=== PATIENT | male | born 1960 | race Caucasian/White ===

== ENCOUNTER → 2018-03-10 17:47 | Outpatient (CLI) | payer BC, SELFPAY ==
[2018-03-10 19:29] LABS: M R Staph aureus DNA By PCR Negative (Negative); Probe Check PASS; Specimen Processing Control PASS; Staph aureus DNA By PCR NEGATIVE (Negative)
== END ==
PROVIDERS: Referring Provider Podiatrist; Visit Provider Podiatrist
DX: L60.0 Ingrowing nail (principal)
CPT/HCPCS: 87070; 87077; 87186; 87205; 87640

== ENCOUNTER 2023-06-02 07:35 | Day surgery (SDC) | payer OTHER, SELFPAY ==
--- OUTSIDE RECORDS SUMMARY | 2023-06-02 07:53 | XMS RPT_ITS | CCD ---
Author Name Unknown Address [address] [place] [address] Organization [facility] Care Team Providers Care Safety Trainer Name Role Phone Mp Key DO Primary Care Provider MP KEY Attending Unavailable MP KEY Primary Care Unavailable Medications Current Medications Medication Drug Class(es) Dates Sig (Normalized) Sig (Original) atorvastatin 10 mg oral tablet (6 sources) HMG-CoA Reductase Inhibitor Start: 03-18-2023 End: 07-24-2023 take 1 tablet by mouth once daily atorvastatin (Lipitor) 10 MG tablet Take 1 tablet (10 mg) by mouth daily for 90 doses. 90 tablet 3 04/25/2023 07/24/2023 Active losartan potassium 100 mg oral tablet (6 sources) Angiotensin 2 Receptor Chasity Start: 03-18-2023 End: 07-24-2023 take 1 tablet by mouth once daily losartan (Cozaar) 100 MG tablet Take 1 tablet (100 mg) by mouth daily for 90 doses. 90 tablet 3 04/25/2023 07/24/2023 Active Problems Active Problems Problem Classification Problem Date Documented Date Episodic/Chronic Disorders of lipid metabolism (8 sources) Mixed hypercholesterolemia and hypertriglyceridemia; Translations: [Mixed hyperlipidemia] Onset: 6 04-25-2023 Chronic Essential hypertension (8 sources) Essential hypertension; Translations: [Essential (primary) hypertension] Onset: 6 04-25-2023 Chronic Other screening for suspected conditions (not mental disorders or infectious disease) (7 sources) Patient encounter status; Translations: [Encounter for screening for malignant neoplasm of colon] Onset: 3 04-25-2023 Episodic Residual codes; unclassified (5 sources) Family history of prostate cancer; Translations: [Family history of malignant neoplasm of prostate] Onset: 04-25-2023 Episodic Past or Other Problems Problem Classification Problem Date Documented Da te Episodic/Chronic Other connective tissue disease (5 sources) Plantar fasciitis of left foot; Translations: [Plantar fascial fibromatosis] Onset: 01-26-2018 02-26-2022 Episodic Results Test Name Value Interpretation Reference Range Facil ity Vital Signs Date Time Vital Sign Value Performing Clinician Faci lity 04-25-2023 17:19-0500 Diastolic blood pressure 76 mm[Hg] Mp Key DO Work Phone: [employer] 04-25-2023 17:19-0500 Heart rate 76 /min Mp Key DO Work Phone: [employer] 04-25-2023 17:19-0500 Systolic blood pressure 126 mm[Hg] Mp Key DO Work Phone: [employer] 04-25-2023 16:14-0500 Body height 180.3 cm Mp Key DO Work Phone: [employer] 04-25-2023 16:14-0500 Body mass index (BMI) [Ratio] 30.27 kg/m2 Mp Key DO Work Phone: [employer] 04-25-2023 16:14-0500 Body temperature 97.81 [degF] Mp Key DO Work Phone: [employer] 04-25-2023 16:14-0500 Body weight 98.43 kg Mp Key DO Work Phone: [employer] 04-25-2023 16:14-0500 SaO2% (BldA) [Mass fraction] 96 % Mp Key DO Work Phone: [facility] [employer] Encounters Encounter Date Encounter Type Care Provider Facility Start: 05-02-2023 Telephone encounter Historical Provider Work Phone: [facility] [employer] [facility] Procedures Date Procedure Procedure Detail Performing Clinician Start: 04-26-2023 Lipid 1996 panel - S sheeba or Plasma Mp Key DO Work Phone: Start: 01-30-2021 Lipid 1996 panel - S sheeba or Plasma Mp Key DO Work Phone: Plan of Treatment Date Care Activity Detail Author Start: 04-26-2028 Lipid panel Lipid Panel [facility] Start: 01-30-2026 Lipid panel Lipid Panel [facility] Start: 02-24-2024 DTaP/Tdap/Td Vaccine s (3 - Td or Tdap) DTaP/Tdap/Td Vaccines (3 - Td or Tdap) [facility] Start: 04-25-2023 End: 04-25-2024 CBC W Auto Differential panel - Blood CBC auto differential Lab Routine Essential hypertension Annual physical exam Expected: 04/25/2023 (Approximate), Expires: 04/25/2024 [facility] Work Phone: Payers Date Payer Category Payer Private Health Insurance 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 Answered all questions regarding locations and physicians. Patients would like to see if another office that she is familiar with can schedule patient first and then will call us if she can't get him scheduled. [facility] 05-03-2023 Miscellaneous Notes Patients called office with questions about scheduling for patient. Answered all questions regarding locations and physicians. Patients would like to see if another office that she is familiar with can schedule patient first and then will call us if she can't get him scheduled. Called patient to schedule screening colonoscopy. Spoke with patient who stated now was not a good time. Patient stated will call me back to schedule. Called patient to schedule screening colonoscopy. Spoke with patient who stated now was not a good time to schedule and he requested to be called tomorrow afternoon. I will attempt to schedule patient at that time. documented in this encounter [facility] 05-03-2023 Telephone encounter Note Called patient to schedule screening colonoscopy. Spoke with patient who stated now was not a good time. Patient stated will call me back to schedule. [facility] 05-02-2023 Telephone encounter Note Called patient to schedule screening colonoscopy. Spoke with patient who stated now was not a good time to schedule and he requested to be called tomorrow afternoon. I will attempt to schedule patient at that time. [facility] 05-02-2023 Miscellaneous Notes Called patient to schedule screening colonoscopy. Spoke with patient who stated now was not a good time to schedule and he requested to be called tomorrow afternoon. I will attempt to schedule patient at that time. documented in this encounter [facility] 04-27-2023 Note Referral pended for dx and doctor's signature [facility] 04-27-2023 Telephone encounter Note Referral pended for dx and doctor's signature [facility] 04-27-2023 Miscellaneous Notes Referral pended for dx and doctor's signature documented in this encounter [facility] 04-25-2023 History of Present illness Narrative Images from the original note were not included. [facility] [address] [place] [address] [address] [facility] [id number] Visit type: Established Patient Reason for Visit: Annual Exam (Pt offered flu shot and declined ) Assessment / Plan: Freddie was seen today for annual exam. Diagnoses and all orders for this visit: Annual physical exam (Primary) - CBC auto differential; Future - Comprehensive metabolic panel; Future - Lipid panel; Future - TSH; Future - PSA Total (Screening); Future - CBC auto differential - Comprehensive metabolic panel - Lipid panel - TSH - PSA Total (Screening) Hypercholesterolemia with hypertriglyceridemia Comments: Stable, continue Lipitor and low-fat meals Orders: - Lipid panel; Future - TSH; Future - Lipid panel - TSH Essential hypertension Comments: Stable, continue losartan Orders: - CBC auto differential; Future - Comprehensive metabolic panel; Future - CBC auto differential - Comprehensive metabolic panel Colon cancer screening Comments: GI referral for colonoscopy versus Cologuard. Patient will get back to us Prostate cancer screening - PSA Total (Screening); Future - PSA Total (Screening) Other orders - atorvastatin (Lipitor) 10 MG tablet; Take 1 tablet (10 mg) by mouth daily for 90 doses. - losartan (Cozaar) 100 MG tablet; Take 1 tablet (100 mg) by mouth daily for 90 doses. Subjective: Patient ID: Freddie Becker is a 62 y.o. male. [facility] annual physical for hypertensive patient with hyperlipidemia treatment. Past medical, past surgical, family and social history reviewed and updated. Of note does have an uncle who recently of complications of a fall and COVID but he did survive prostate cancer. This patient feels well. Has gained weight. Does not smoke or drink alcohol. Trying to stay fit and plans to exercise more. Only has questions whether he should undergo colonoscopy. Paternal history of thyroid cancer and uncle with prostate cancer. His bowels are regular. He might consider Cologuard exam Review of Systems Constitutional: Negative for activity change, appetite change, fatigue and fever. HENT: Negative for congestion. Eyes: Negative for visual disturbance. Respiratory: Negative for cough, shortness of breath and wheezing. Cardiovascular: Negative for chest pain, palpitations and leg swelling. Gastrointestinal: Negative for abdominal pain, blood in stool, constipation, diarrhea and vomiting. Genitourinary: Negative for difficulty urinating and hematuria. Musculoskeletal: Negative for arthralgias. Skin: Negative for rash. Neurological: Negative for weakness. Hematological: Negative for adenopathy. Does not bruise/bleed easily. No Known Allergies Current Outpatient Medications on File Prior to Visit Medication Sig Dispense Refill [DISCONTINUED] atorvastatin (Lipitor) 10 MG tablet Take 1 tablet (10 mg) by mouth daily. 30 tablet 11 [DISCONTINUED] losartan (Cozaar) 100 MG tablet Take 1 tablet (100 mg) by mouth daily. 30 tablet 11 No current facility-administered medications on file prior to visit. Patient Active Problem List Diagnosis Essential hypertension Hypercholesterolemia with hypertriglyceridemia Plantar fasciitis of left foot Family history of prostate cancer Social History Tobacco Use Smoking status: Never Smokeless tobacco: Never Substance Use Topics Alcohol use: No Alcohol/week: 0.0 standard drinks of alcohol Past Surgical History: Procedure Laterality Date COLONOSCOPY 2012 [place]- due 2022 Family History Problem Relation Name Age of Onset Parkinsonism Mother Vera High Blood Pressure Mother Vera alive age 88 Thyroid cancer Father Amanuel 69 age 69 No Known Problems Sister Elham Peña No Known Problems Sister Ary Panchal No Known Problems Brother Vahe Objective: BP 126/76 Pulse 76 Temp 36.6 C (97.8 F) (Temporal) Ht 5' 11 (1.803 m) Wt 217 lb (98.4 kg) SpO2 96% BMI 30.27 kg/m Physical Exam Constitutional: General: He is not in acute distress. Appearance: Normal appearance. He is not ill-appearing. HENT: Right Ear: Tympanic membrane normal. Left Ear: Tympanic membrane normal. Nose: Nose normal. No congestion or rhinorrhea. Mouth/Throat: Pharynx: No oropharyngeal exudate or posterior oropharyngeal erythema. Eyes: General: No scleral icterus. Conjunctiva/sclera: Conjunctivae normal. Neck: Vascular: No carotid bruit. Cardiovascular: Rate and Rhythm: Normal rate and regular rhythm. Pulses: Normal pulses. Heart sounds: Normal heart sounds. No murmur heard. No gallop. Pulmonary: Effort: No respiratory distress. Breath sounds: Normal breath sounds. No wheezing or rhonchi. Abdominal: General: Bowel sounds are normal. There is no distension. Palpations: Abdomen is soft. There is no mass. Tenderness: There is no abdominal tenderness. Hernia: No hernia is present. Comments: No hepatosplenomegaly masses bruits or ascites. Femoral pulses are good Genitourinary: Penis: No discharge. Comments: Normal genitalia, no scrotal masses or pain. No hernias. CRYSTAL revealed normal sphincter tone and no anal or rectal masses. Prostate exam revealed no nodules. Musculoskeletal: General: Normal range of motion. Cervical back: Neck supple. Right lower leg: No edema. Left lower leg: No edema. Lymphadenopathy: Cervical: No cervical adenopathy. Skin: General: Skin is warm. Findings: No erythema, lesion or rash. Neurological: Mental Status: He is alert and oriented to person, place, and time. Cranial Nerves: No cranial nerve deficit. Motor: No weakness. Deep Tendon Reflexes: Reflexes normal. Psychiatric: Mood and Affect: Mood normal. Thought Content: Thought content normal. documented in this encounter [facility] Diagnosis Colon cancer screening- Primary Special screening for malignant neoplasms, colon [facility])* Consultation (Routine) - Pending Review Specialty Diagnoses / Procedures Referred By Daniel hay Referred To Contact Gastroenterology Diagnoses Colon cancer screening Procedures ME OFFICE/OUTPATIENT [facility] 60-74 MINUTES Mp Key DO [address] [place] [address] [address] [place] [address] Ashly Lindsay MD [address] [place] [address] [address] [place] [address] Referral ID Status Reason Start Date Expiration Date Visits Requested Visits Authorized [id number] Pending Review Specialty Services Required 3 04/26/2024 1 1 [facility] Summary Purpose Family History No Family History Records Found Advance Directives No Advanced Directives Records Found Additional Source Comments Reason for Visit (unrecogniz ed section and content) Reason Onset Date Comments Referral 04/27/2023 [facility] Reason Onset Date Comments Colon Cancer Screening 05/02/2023 Colonoscopy 05/02/2023 Screening Progra m Care Teams (unrecognized sec tion and content) Safety Trainer Relationship Specialty Start Date End Date Mp Key DO [address] [place] [address] PCP - General 01/01/15 Safety Trainer Relationship Specialty Start Date End Date Mp Key DO [address] [place] [address] [address] [place] [address] PCP - General 01/01/15 Safety Trainer Relationship Specialty Start Date End Date Mp Key DO [address] [place] [address] [address] [place] [address] PCP - General 01/01/15 (unrecognized sect ion and content) No Status Records Found INFORMATION SOURCE (unrecogn ized section and content) FOR RECORDS PERTAINING TO PATIENTS WHO ARE OR HAVE BEEN ENROLLED IN A CHEMICAL DEPENDENCY/SUBSTANCEABUSE PROGRAM, SOME INFORMATION MAY BE OMITTED. This clinical summary was aggregated from multiple sources. Caution should be exercised in using it in the provision of clinical care. This summary normalizes information from multiple sources, and as a consequence, information in this document may materially change the coding, format and clinical context of patient data. In addition, data may be omitted in some cases. CLINICAL DECISIONS SHOULD BE BASED ON THE PRIMARY CLINICAL RECORDS. [facility] [employer] [facility]. provides no warranty or guarantee of the accuracy or completeness of information in this document.
[2023-06-02 07:57] VITALS: BMI 29.0
[2023-06-02] MEDS: Lactated Ringers 1,000 ML 15 ML IV (08:15)
--- NOTE | 2023-06-02 08:45 | COLBX_PTH ---
PATHOLOGY RESULTS PATIENT: GUILLERMO BECKER LOC: EN U#:[id number] AGE/SX: 62/M ROOM: RE06/02/[address]: Dr. Lauro Schneider DO : 1960 BED: DIS: 06/02/2023 SPEC #: [id number] RECD: 06/02/23 13:06 STATUS: ANGELA COPPOLA #: [id number] LEROY: 06/02/23 08:[address]: Lauro Schneider DEPT: SURGICAL PATHOLOGY RECD BY: Kelly Mccullough ENTERED: 06/02/23 13:06 SP TYPE: COLON BX ABDOULAYE DR: Dr. 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 See comment. SJ:guillermo 06/03/2023 COMMENT Correlation with clinical, endoscopic findings and appropriate follow up are necessary. Case has been reviewed in consultation with Dr. Negro who concurs with the above diagnosis. IDC:AM MICROSCOPIC DESCRIPTION Slides are reviewed. GROSS DESCRIPTION Received in fixative is one container labeled with the patient's name and designated hepatic flexure polyp. The specimen consists of two irregular fragments of light perez soft tissue that in aggregate measure 0.8 x 0.3 x 0.2 cm. The specimen is totally submitted in one cassette. / FREDERICK:guillermo 06/02/2023 TC:5 CPT: 84764
--- NOTE | 2023-06-02 08:57 | PCM.HP.STD ---
[facility] - General General Date of Admission: 06/02/23 Date of Service: 06/02/23 Chief Complaint: Screening colonoscopy HPI Narrative GUILLERMO BECKER, is a 62 M who presents today for screening colonoscopy. He has no abdominal pain. He has no cramping. He has no chest pain or shortness of breath. He had a colonoscopy last week 10 years ago and it was normal. He comes in today for repeat screening colonoscopy 10 years later. [facility] Medical History (Updated 05/30/23 @ 14:03 by Neida Camejo) Arthritis High cholesterol HTN (hypertension) Non-smoker Tinnitus Wears glasses Home Medications aspirin 81 mg tablet,delayed release (Adult Low Dose Aspirin) 81 mg PO DAILY 05/05/23 [History Last Taken Unknown] atorvastatin 10 mg tablet 10 mg PO QHS 05/05/23 [History Last Taken Unknown] losartan 100 mg tablet 100 mg PO QHS 05/05/23 [History Last Taken Unknown] Allergy/AdvReac Type Severity Reaction Status Date / Time No Known Allergies Allergy Verified 05/30/23 13:54 Surgical History History of surgical procedure on eye proper using laser History of wisdom tooth extraction Hx of colonoscopy Social History (Updated 05/05/23 @ 08:21 by Waleska Wang) household members: spouse current occupational status: employed Smoking Status: Smoker, status unknown ROS Review of Systems ROS Unobtainable: other Constitutional Constitutional: Denies fatigue, fever(s), poor appetite, weight gain or weight loss ENT HEENT: Denies mouth lesions Cardiovascular Cardiovascular: Denies abdominal bloating, abdominal edema or abdominal pain Respiratory/Chest Respiratory/Chest: Denies change in mental status, change in phlegm color, chest congestion or chest tightness Gastrointestinal Gastrointestinal: Denies belching, bloating, change in bowel habits, change in stool character, chewing difficulty, coffee ground emesis, constipation, cramping, diarrhea, dyspepsia, dysphagia, early satiety, excessive flatus, fecal incontinence, heartburn, hematemesis, hematochezia, hemorrhoids, loose stools, melena, nausea, odynophagia, rectal bleeding, tenesmus, vomiting or weight changes Genitourinary Genitourinary: Denies abdominal discomfort, burning urination or itching Musculoskeletal Musculoskeletal: Reports as per HPI; Denies muscle weakness or myalgias Integumentary Integumentary: Denies jaundice Neurologic Neurologic: Denies lack of coordination or weakness Psychiatric Psychiatric: Denies confusion, depression, memory loss, mood swings, paranoia or suicidal ideation Endocrine Endocrinology: Denies systems reviewed and no addt'l complaints, except as documented Hematologic/Lymphatic Hematologic/Lymphatic: Denies anemia, easy bleeding, easy bruising or lymphadenopathy Allergic/Immunologic Allergic/Immunologic: Denies systems reviewed and no addt'l complaints, except as documented Vital Signs Vital Signs Vital Signs: 06/02/23 07:57 06/02/23 07:57 Temperature Source Temporal Respiratory Pattern Normal Blood Pressure Source Monitor Blood Pressure Position Semi-Fowlers Blood Pressure Location Right Arm Oxygen Delivery Method Room Air Weight Weight: 214 lb 8.156 oz Body Mass Index (BMI) 29.0 Physical Exam Const alert General Appearance: cooperative Orientation / Consciousness: oriented to person HEENT hearing grossly normal bilaterally Head and Scalp: normal to inspection Face and Sinus: face symmetric Nose: external nose normal Mouth: oral and palatal mucosa normal Eyes conjunctivae normal General Eye: normal appearance of both eyes Neck full ROM General: normal visual inspection Lymph Lymphatic: no lymphadenopathy noted Chest inspection of chest normal and palpation of chest normal Chest: symmetrical chest wall rise Resp normal respiratory effort Effort and Inspection: able to speak in complete sentences Cardio regular rate GI non-distended Percussion: normal to percussion Rectal Exam: deferred Neuro Speech: speech normal Gait (Neuro): normal gait Assessment & Plan Assessment/Plan (1) Encounter for screening for malignant neoplasm of colon: PLAN: He was explained alternatives, risk, benefits include not withstanding bleeding, infection, sepsis, perforation, need for emergent surgery and . He will have an ASA of 3.
[2023-06-02 09:26] VITALS: BP 116/82; BP 131/82; PULSE 77; RESP 16; TEMP 36.2; O2SAT 99
--- NOTE | 2023-06-02 09:29 | OP.COLON_ITS ---
Patient Name: Freddie Guerrero Procedure Date: 06/02/2023 8:54 AM Date of : 1960 Age: 62 Procedure: Colonoscopy Indications: Screening for colorectal malignant neoplasm Providers: Lauro Schneider DO Medicines: Monitored Anesthesia Care Patient Profile: This is a 62 year old male. Refer to note in patient chart for documentation of history and physical. Last Colonoscopy: 10 years ago. Complications: No immediate complications. Procedure: Pre-Anesthesia Assessment: - Prior to the procedure, a History and Physical was performed, and patient medications and allergies were reviewed. The patient is competent. The risks and benefits of the procedure and the sedation options and risks were discussed with the patient. All questions were answered and informed consent was obtained. Patient identification and proposed procedure were verified by the physician in the pre-procedure area. Mental Status Examination: alert and oriented. Airway Examination: normal oropharyngeal airway and neck mobility. Respiratory Examination: clear to auscultation. CV Examination: normal. Prophylactic Antibiotics: The patient does not require prophylactic antibiotics. Prior Anticoagulants: The patient has taken no anticoagulant or antiplatelet agents. ASA Grade Assessment: II - A patient with mild systemic disease. After reviewing the risks and benefits, the patient was deemed in satisfactory condition to undergo the procedure. The anesthesia plan was to use moderate sedation / analgesia (conscious sedation). Immediately prior to administration of medications, the patient was re-assessed for adequacy to receive sedatives. The heart rate, respiratory rate, oxygen saturations, blood pressure, adequacy of pulmonary ventilation, and response to care were monitored throughout the procedure. The physical status of the patient was re-assessed after the procedure. After I obtained informed consent, the scope was passed under direct vision. Throughout the procedure, the patient's blood pressure, pulse, and oxygen saturations were monitored continuously. The Colonoscope was introduced through the anus and advanced to the cecum, identified by appendiceal orifice and ileocecal valve. The colonoscopy was performed without difficulty. The patient tolerated the procedure well. The quality of the bowel preparation was adequate. The ileocecal valve, appendiceal orifice, and rectum were photographed. Scope In: 9:04:20 AM Scope Withdrawal Time 0 hours 12 minutes 52 seconds Scope Out: 9:22:37 AM Total Procedure Duration Time 0 hours 18 minutes 17 seconds Findings: The perianal and digital rectal examinations were normal. Multiple small and large-mouthed diverticula were found in the recto-sigmoid colon, sigmoid colon and descending colon. A 13 mm polyp was found in the hepatic flexure. The polyp was sessile. The polyp was removed with a saline injection-lift technique using a hot snare. Resection and retrieval were complete. To prevent bleeding after the polypectomy, one hemostatic clip was successfully placed. Clip cane splicer: [employer]. There was no bleeding at the end of the procedure. Impression: - Diverticulosis in the recto-sigmoid colon, in the sigmoid colon and in the descending colon. - One 13 mm polyp at the hepatic flexure, removed using injection-lift and a hot snare. Resected and retrieved. Clip was placed. Clip cane splicer: [employer]. Recommendation: - Repeat colonoscopy in 5 years for surveillance. - Continue present medications. Procedure Code(s): --- Professional --- 42824, Colonoscopy, flexible; with removal of tumor(s), polyp(s), or other lesion(s) by snare technique 03749, Colonoscopy, flexible; with directed submucosal injection(s), any substance CPT copyright 2021 [employer]. All rights reserved. The codes documented in this report are preliminary and upon dental treatment coordinator review may be revised to meet current compliance requirements. Lauor Schneider DO 06/02/2023 9:28:56 AM This report has been signed electronically. Number of Addenda: 0 Note Initiated On: 06/02/2023 8:54 AM
--- NOTE | 2023-06-02 09:29 | OP.CCLET_ITS ---
06/02/2023 [facility] Re : Colonoscopy procedure for Freddie Guerrero Dear Shahid This procedure was performed on May. My impressions and recommendations are as follows: Impressions : - Diverticulosis in the recto-sigmoid colon, in the sigmoid colon and in the descending colon. - One 13 mm polyp at the hepatic flexure, removed using injection-lift and a hot snare. Resected and retrieved. Clip was placed. Clip bobbin inspector: [employer]. Recommendations : - Repeat colonoscopy in 5 years for surveillance. - Continue present medications. My findings are described in the full procedure note, which is enclosed. If I can be of further assistance, please feel free to contact me at . Sincerely, Lauro Friend, 06/02/2023 9:28:56 AM This report has been signed electronically.
[2023-06-02 09:30] VITALS: BP 114/82; BP 131/82; PULSE 78; RESP 16; O2SAT 95
[2023-06-02 09:35] VITALS: BP 123/76; BP 131/82; PULSE 75; RESP 16; O2SAT 99
[2023-06-02 09:40] VITALS: BP 121/76; BP 131/82; PULSE 75; RESP 16; TEMP 36.9; O2SAT 99
[2023-06-02 09:53] VITALS: BP 131/82
== END 2023-06-02 10:03 | disposition home or self-care (01) ==
LOC: EN 07:39 → AC 07:39
PROVIDERS: PCP Family Medicine; Referring Provider Family Medicine; Visit Provider Internal Medicine Gastroenterology
PROC: 0DJD8ZZ Inspection of Lower Intestinal Tract, Via Natural or Artificial Opening Endoscopic (ICD-10-PCS; CPT 45378; principal; 2023-06-02 08:40)
DX: Z12.11 Encounter for screening for malignant neoplasm of colon (principal); K57.30 Diverticulosis of large intestine without perforation or abscess without bleeding; K63.5 Polyp of colon; E78.00 Pure hypercholesterolemia, unspecified; I10 Essential (primary) hypertension; Z79.82 Long term (current) use of aspirin; Z79.899 Other long term (current) drug therapy
CPT/HCPCS: 45385; 45381; 88305; J7120; J2405